=== PATIENT | male | born 1965 | race Hispanic/Latino ===

== ENCOUNTER 2018-06-05 02:43 | Emergency (ER) | payer OTHER ==
[~2018-06-05] VITALS: Ht 172.7 cm; Wt 117.9 kg
[~2018-06-05 02:43] MED LIST: AMIODARONE HCL200 MG; AMIODARONE HCL200 MG PO; CARVEDILOL3.125 MG; CARVEDILOL3.125 MG PO; COUMADIN5 MG PO; CYCLOBENZAPRINE5 MG PO; FUROSEMIDE20 MG; FUROSEMIDE20 MG PO; LAMICTAL200 MG PO; LAMOTRIGINE200 MG; NORCO 5-325 TA1 EACH PO; PANTOPRAZOLE SO40 MG PO; PRAVASTATIN SOD40 MG; PRAVASTATIN SOD40 MG PO; SEROQUEL XR150 MG; SEROQUEL XR150 MG PO; SPIRONOLACTONE25 MG; SPIRONOLACTONE25 MG PO; SUCRALFATE1 GM PO; TRAZODONE HCL50 MG; WARFARIN SODIU2.5 MG
[2018-06-05] MEDS ORDERED: FUROSEMIDE40 MG PO (03:14)
[2018-06-05] MEDS ORDERED: WARFARIN SODIUM5 MG PO (03:14)
[2018-06-05] MEDS ORDERED: CARVEDILOL25 MG PO (03:14)
[2018-06-05] MEDS ORDERED: ATORVASTATIN CA40 MG PO (03:14)
[2018-06-05] MEDS ORDERED: CITALOPRAM HBR20 MG PO (03:14)
[2018-06-05] MEDS ORDERED: ROPINIROLE HCL1 MG PO (03:14)
[2018-06-05] MEDS ORDERED: VENTOLIN HFA18 GM INH (03:14)
[2018-06-05] MEDS ORDERED: BUPROPION XL300 MG PO (03:14)
[2018-06-05 03:18] LABS: BASOPHILS % 0.4 % (0.0-1.0); EOSINOPHILS # (AUTO) 0.1 (0.0-0.4); EOSINOPHILS % 1.3 % (0.0-6.0); HEMATOCRIT 46.6 % (38.2-49.6); LYMPHOCYTES # (AUTO) 1.8 (1.0-3.2); LYMPHOCYTES % 17.9 % (18.0-39.1); MEAN CORPUSCULAR HEMOGLOBIN 28.1 pg (28-32); MEAN CORPUSCULAR HGB CONC 34.3 g/dL (31-35); MEAN CORPUSCULAR VOLUME 81.9 fL (81-99); MONOCYTES # (AUTO) 1.3 (0.2-0.8); MONOCYTES % 12.9 % (4.4-11.3); NEUTROPHILS # (AUTO) 6.6 (2.1-6.9); PLATELET COUNT 313 x10e3/uL (140-360); RED BLOOD COUNT 5.69 x10e6/uL (4.3-5.7); RED CELL DISTRIBUTION WIDTH 15.3 % (11.7-14.4)
[2018-06-05 03:30] LABS: ALANINE AMINOTRANSFERASE 62 IU/L (0-55); ALBUMIN 3.3 g/dL (3.5-5.0); ALBUMIN/GLOBULIN RATIO 0.9 (0.8-2.0); ALKALINE PHOSPHATASE 94 IU/L (40-150); ANION GAP 13.3 mmol/L (8-16); BLOOD UREA NITROGEN 10 mg/dL (7-26); BUN/CREATININE RATIO 10 (6-25); CALCIUM 8.8 mg/dL (8.4-10.2); CARBON DIOXIDE 25 mmol/L (22-29); CHLORIDE 103 mmol/L (98-107); CREATINE KINASE 184 IU/L (30-200); CREATININE, SERUM 1.02 mg/dL (0.72-1.25); EST GLOMERULAR FILTRATION RATE > 60 ML/MIN (60-); GLUCOSE 106 mg/dL (74-118); MAGNESIUM 1.5 MG/DL (1.3-2.1); POTASSIUM 3.3 mmol/L (3.5-5.1); SODIUM 138 mmol/L (136-145)
--- NOTE | 2018-06-05 03:44 | Diagnostic Imaging Report ---
EXAM: CHEST SINGLE (PORTABLE), AP 1 view INDICATION: Defibrillator alarm COMPARISON: None FINDINGS: LINES/TUBES: Left approach dual lead pacemaker with leads in expected location of the right atrial appendage and right ventricle. LUNGS: No consolidations or edema. PLEURA: No effusions or pneumothorax. HEART AND MEDIASTINUM: Normal size and contour. BONES AND SOFT TISSUES: No acute findings. IMPRESSION: No acute thoracic abnormality. Signed by: Dr. Nelda Lackey M.D. on 06/05/2018 3:41 AM
[2018-06-05] MEDS ORDERED: POTASSIUM CHLORIDE 20 MEQ TAB CR PO STA (04:37)
== END 2018-06-05 05:25 | disposition other institution (70) ==
LOC: ER 02:43
DX: I49.01 Ventricular fibrillation (principal); Z95.810 Presence of automatic (implantable) cardiac defibrillator
CPT/HCPCS: 36415; 71045; 80053; 82550; 82553; 83735; 84484; 85025; 93005; 99284

== ENCOUNTER 2018-09-05 16:28 | Observation (INO) | payer OTHER ==
[~2018-09-05] VITALS: Ht 172.7 cm; Wt 111.1 kg
[~2018-09-05 16:28] MED LIST changes: +ATORVASTATIN CA40 MG PO; +BUPROPION XL300 MG PO; +CARVEDILOL25 MG PO; +CITALOPRAM HBR20 MG PO; +FUROSEMIDE40 MG PO; +ROPINIROLE HCL1 MG PO; +VENTOLIN HFA18 GM INH; +WARFARIN SODIUM5 MG PO
--- OUTSIDE RECORDS SUMMARY | 2018-09-05 16:30 | XMS REPORT | Continuity of Care Document ---
Author Author [facility] Interface Address Unknown Phone Unavailable Problems Problem Status Onset Date Classification Date Reported Comments Source R05 - COUGH Active 03/03/2016 [facility] Medications Medication Details Route Status Patient Instructions Ordering Provider Order Date Source Allergies, Adverse Reactions, Alerts Substance Category Reaction Severity Reaction type Status Date Reported Comments Source Immunizations Immunization Date Given Site Status Last Updated Comments Source Results Order Name Results Value Reference Range Date Interpretation Comments Source Chest 2 views DX Chest 2 views DX EXAM: XR CHEST 2 VIEWS DATE: 03/04/2016 9:55 AM CDT INDICATION: R05 Cough for the past one month COMPARISON: None TECHNIQUE: PA and lateral chest radiographs FINDINGS: A dual-lead left chest wall subclavian cardiac device is in place with lead tips projected over the right atrium and right ventricle. No lung parenchymal or pleural abnormalities are seen Gisselle and pulmonary vasculature are normal. Cardiomediastinal silhouette is normal in appearance. No acute bony abnormality is identified. IMPRESSION: No acute cardiopulmonary abnormality. 03/04/2016 - - Read by: Bal Mackey MD Dictated Date/time: 03/04/16 10:22 Electronically Signed by: Bal Mackey MD 03/04/16 10:23 FINAL REPORT [facility] Vital Signs Vital Sign Value Date Comments Source Encounters Location Location Details Encounter Type Encounter Number Reason For Visit Attending Provider ADM Date DC Date Status Source Procedures Procedure Code Date Perfomer Comments Source
--- OUTSIDE RECORDS SUMMARY | 2018-09-05 16:30 | XMS REPORT | Summary of Care ---
Author Author Bianka DE LUNA Ela Charly Unknown Address Unknown Phone Unavailable Care Team Providers Care Stone Circular Sawyer Name Role Phone CARLOS Avila, ERNST Unavailable Unavailable ABHI Avila, SHERIDAN Unavailable Unavailable MIGDALIA Avila, SHAOJIJe Unavailable Unavailable OBONYABHIJIT N.P., TRACEY Unavailable Unavailable ABHI CARLISLE [place], SHERIDAN Unavailable Unavailable TRINH Avila, CASSIE Unavailable Unavailable JANAK Avila, ZULMA Unavailable Unavailable Loren CARLISLE, Will Unavailable Unavailable PRINCESS CARLISLE [place], JODIE Sales Unavailable Unavailable Jodie CARLISLE, Adrian Unavailable Unavailable Unavailable Unavailable Functional Status Name Dates Details Functional status health issues are not documented Status: Name Dates Details Cognitive status health issues are not documented Status: Problems Name Dates Details Exposure to blood (V15.85, Z77.21) Status: Active Neuropathy (355.9, G62.9) Status: Active Low back pain (724.2, M54.5) Status: Active Allergic rhinitis (477.9, J30.9) Status: Active Flu vaccine need (V04.81, Z23) Status: Active Chest pain (786.50, R07.9) Status: Active Hearing loss (389.9, H91.90) Status: Active Asymmetrical sensorineural hearing loss (389.16, H90.5) Status: Active Leg pain, bilateral (729.5, M79.604) Status: Active Eustachian tube dysfunction (381.81, H69.80) Status: Active Cerebral infarction, unspecified (434.91, I63.9) Status: Active Annual physical exam (V70.0, Z00.00) Status: Active Erectile dysfunction, unspecified erectile dysfunction type (607.84, N52.9) Status: Active Right shoulder pain (719.41, M25.511) Status: Active Alkaline phosphatase elevation (790.5, R74.8) Status: Active 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 with INR goal of 2.0-3.0 (V58.61, Z79.01) Status: Active Muscle spasm (728.85, M62.838) Status: Active Need for pneumococcal vaccine (V03.82, Z23) Status: Active Bilateral anterior knee pain (719.46, M25.561) Status: Active Polycythemia (238.4, D75.1) Status: Active Right non-suppurative otitis media (381.4, H65.91) Status: Active Sinus congestion (478.19, R09.81) Status: Active Otorrhea of right ear (388.60, H92.11) Status: Active Diverticulosis of large intestine without hemorrhage (562.10, K57.30) Status: Active Renal cyst, left (753.10, N28.1) Status: Active Hypophosphatemia (275.3, E83.39) Status: Active Advance directive discussed with patient (V65.49, Z71.89) Status: Active Encounter for smoking cessation counseling (V65.42, Z71.6) Status: Active Incisional hernia (553.21, K43.2) Status: Active Obstructive sleep apnea (327.23, G47.33) Status: Active Ventral hernia (553.20, K43.9) Status: Active Restless legs syndrome (333.94, G25.81) Status: Active Depression screen (V79.0, Z13.89) Status: Active Encounter for mini-mental status examination Status: Active Risk for falls (V15.88, Z91.81) Status: Active Fall from chair, initial encounter (E884.2, W07.XXXA) Status: Active Need for shingles vaccine (V04.89, Z23) Status: Active Noncompliance with treatment (V15.81, Z91.19) Status: Active Abnormal CBC (790.6, R79.89) Status: Active SOB (shortness of breath) (786.05, R06.02) Status: Active Depressive disorder (311, F32.9) Status: Active Essential (primary) hypertension (401.9, I10) Status: Active Hyperlipidemia (272.4, E78.5) Status: Active Bloating (787.3, R14.0) Status: Active Diarrhea (787.91, R19.7) Status: Active Colon cancer screening (V76.51, Z12.11) Status: Active Excessive gas (787.3, R14.3) Status: Active Hospital discharge follow-up (V67.59, Z09) Status: Active Dizziness (780.4, R42) Status: Active Cardiomyopathy, idiopathic (425.4, I42.8) Status: Active Ventricular tachycardia (427.1, I47.2) Status: Active Tubular adenoma (229.9, D36.9) Status: Active Abnormal LFTs (790.6, R94.5) Status: Active Current every day smoker (305.1, F17.200) Status: Active Numbness and tingling of left upper extremity (782.0, R20.0) Status: Active Abnormal CT scan, cervical spine (793.7, R93.7) Status: Active Atrial fibrillation (427.31, I48.91) Status: Active Anticoagulant long-term use (V58.61, Z79.01) Status: Active Acid reflux (530.81, K21.9) Status: Active Chronic diarrhea (787.91, K52.9) Status: Active DJD (degenerative joint disease) of cervical spine (721.0, M47.812) Status: Active Major depression, recurrent, chronic (296.30, F33.9) Status: Active CAD (coronary artery disease) (414.00, I25.10) Status: Active Controlled type 2 diabetes mellitus without complication, without long-term current use of insulin (250.00, E11.9) Status: Active Fatty liver (571.8, K76.0) Status: Active GERD without esophagitis (530.81, K21.9) Status: Active Obesity (BMI 30-39.9) (278.00, E66.9) Status: Active Pancreatic insufficiency (577.8, K86.89) Status: Active Chest pressure (786.59, R07.89) Status: Active Uncontrolled hypertension (401.9, I10) Status: Active Headache (784.0, R51) Status: Active Obesity, morbid, BMI 40.0-49.9 (278.01, E66.01) Status: Active Need for influenza vaccination (V04.81, Z23) Status: Active Medications Name Dates Details Carvedilol 25 MG Oral Tablet Take 1 tablet by mouth twice a day * Start : 07-Feb-2013 Active Vitamin K2 100 MCG Oral Capsule TAKE 1 CAPSULE DAILY * Refills: 0 Active Warfarin Sodium 5 MG Oral Tablet TAKE 1 TABLET BY MOUTH EVERY DAY DIRECTED * Quantity: 90 Refills: 0 ABHI Avila, SHERIDAN * Start : 23-Aug-2018 Active Atorvastatin Calcium 40 MG Oral Tablet TAKE 1 TABLET BY MOUTH EVERY DAY * Quantity: 90 Refills: 0 ABHI Avila SHERIDAN * Start : 21-Jun-2018 Active Diclofenac Sodium 1 % Transdermal Gel APPLY 4GM(S) TO LOWER EXTREMITIES OF THE AFFECTED AREA(S) FOUR TIMES A DAY. DO N OT APPLY MORE THAN 16 GM(S) DAILY TO ANY ONE AFFECTED JOINT * Quantity: 10 Refills: 3 ERNST GONZALEZ M.D. * Start : 20-May-2017 Active 100 GM Tube BuPROPion HCl ER (XL) 300 MG Oral Tablet Extended Release 24 Hour TAKE 1 TABLET BY MOUTH DAILY DIRECTED * Quantity: 90 Refills: 0 ABHI Avila, SHERIDAN * Start : 21-Jun-2018 Active Aspirin 81 MG Oral Tablet Chewable CHEW AND SWALLOW 1 TABLET DAILY. * Refills: 0 Active Requip 1 MG Oral Tablet TAKE 1 TABLETS AT BEDTIME-Dr Garcia * Refills: 0 ABHI Avila, SHERIDAN * Start : 06-Aug-2017 Active Excedrin Extra Strength TABS TAKE TABLET PRN * Refills: 0 Active Shingrix 50 MCG Intramuscular Suspension Reconstituted IM: 0.5 mL 2-dose series at 0 and 2 to 6 months * Quantity: 1 Refills: 1 ABHI Avila SHERIDAN * Start : 25-Mar-2018 Active ProAir HFA 108 (90 Base) MCG/ACT Inhalation Aerosol Solution INHALE 1 TO 2 PUFFS EVERY 4 TO 6 HOURS NEEDED. * Quantity: 1 Refills: 1 ABHI Avila SHERIDAN * Start : 12-May-2018 Active 8.5 GM Inhaler Loperamide HCl - 2 MG Oral Capsule TAKE 1 CAPSULE Twice daily PRN for loose stools * Quantity: 60 Refills: 0 OBONYANO N.P., TRACEY Active Lisinopril 2.5 MG Oral Tablet TAKE 1 TABLET DAILY.-HOLD, low bp * Quantity: 90 Refills: 1 SATTAR M.D., SHERIDAN * Start : 17-Jun-2018 Active Pantoprazole Sodium 40 MG Oral Tablet Delayed Release TAKE ONE (1) TABLET(S) BY MOUTH ONCE A DAY IN THE MORNING. * Quantity: 30 Refills: 6 OBONYANO N.P., TRACEY * Start : 28-Jun-2018 Active Creon [id number] UNIT Oral Capsule Delayed Release Particles TAKE 1 CAPSULE 3 TIMES DAILY with meals * Quantity: 90 Refills: 6 OBONYANO N.P., TRACEY * Start : 28-Jun-2018 Active OneTouch Verio In Vitro Strip test once daily * Quantity: 150 Refills: 2 SATTAR M.D., SHERIDAN * Start : 01-Jul-2018 Active OneTouch Verio Flex System w/Device Kit USE DIRECTED. * Quantity: 1 Refills: 0 SATTAR M.D., SHERIDAN * Start : 30-Jun-2018 Active OneTouch Delica Lancets 33G USE TO TEST BLOOD GLUCOSE ONCE DAILY * Quantity: 50 Refills: 1 SATTAR M.D., SHERIDAN * Start : 30-Jun-2018 Active MetFORMIN HCl - 500 MG Oral Tablet TAKE 1 TABLET TWICE DAILY. * Quantity: 60 Refills: 2 SATTAR M.D., SHERIDAN * Start : 22-Jul-2018 Active Sertraline HCl - 25 MG Oral Tablet TAKE 1 TABLET DAILY. * Quantity: 30 Refills: 1 NEGRON M.D., SHAOJIE * Start : 26-Jul-2018 Active Allergies and Adverse Reactions Name Dates Details PARoxetine HCl ER TB24 (Allergy) Reaction: Confusion, Dizziness, Nausea, Sexual dysfunction Status: Active Past Medical History Name Dates Details History of Acute Myocardial Infarction (V12.59) Status: Resolved History of Acute suppurative otitis media (382.00, H66.009) Status: Resolved History of Atrial fibrillation (427.31, I48.91) Status: Resolved History of Breast pain, right (611.71, N64.4) Status: Resolved History of Drug-induced gynecomastia (611.1, N62) Status: Resolved History of Encounter for smoking cessation counseling (V65.42, Z71.6) Status: Resolved History of gynecomastia (V13.89, Z87.898) Status: Resolved History of Otitis externa (380.10, H60.90) Status: Resolved History of Otitis externa (380.10, H60.90) Status: Resolved History of Pseudomonas infection (041.7, B96.5) Status: Resolved History of Rhinitis (472.0, J31.0) Status: Resolved History of Stye (373.11, H00.019) Status: Resolved History of Swelling in head/neck (784.2, R22.0) Status: Resolved History of Upper respiratory infection, acute (465.9, J06.9) Status: Resolved Procedures Procedure Dates Details EKG (In Office) Date: 12-Aug-2018 [[facility]] CMP W/EGFR Date: 12-Aug-2018 [[facility]] MAGNESIUM Date: 12-Aug-2018 [[facility]] PHOSPHATE ( PHOSPHORUS) Date: 12-Aug-2018 CT Spine cervical wo contrast (ER) 61382 Date: 08-Jul-2018 History of Abdominal Surgery Completed History of Knee Surgery Left Completed History of Knee Surgery Completed History of Jaw Surgery Completed History of Hernia Repair Completed History of Gastric Surgery Completed History of Pacemaker Placement Completed Immunization Name Dates Details Fluzone Preservative Free 0.5 ML CARLOS A Lot #: [id number] on: 07-Aug-2015 Fluzone INJ Lot #: [id number] on: 16-Jul-2016 Tdap Lot #: [id number] on: 06-Oct-2016 Pneumococcal polysaccharide vaccine, 23 valent Lot #: [id number] on: 04-Feb-2017 Fluzone Quadrivalent 0.5 ML Intramuscular Suspension Prefilled Syringe Lot #: [id number] on: 12-Aug-2018 Family History Name Dates Details Family history of Cancer Status: Active Name Dates Details Family history of Hypertension (V17.49) Status: Active Social History Name Dates Details - Status: Name Dates Details Former smoker Current every day smoker Vital Signs Date Test Result Details [id number] BP Systolic 119 mm[Hg] Status: Comments: Location: LUE; Position: Sitting BP Diastolic 61 mm[Hg] Status: Comments: Location: LUE; Position: Sitting Height 68 in Status: Weight 245.8 lb Status: Body Mass Index Calculated 37.37 kg/m2 Status: Body Surface Area Calculated 2.23 m2 Status: Respiration Rate 16 /min Status: Temperature 97.9 f Status: Comments: Method: Temporal Physical Findings 1 Status: Comments: Alcohol Screen - How many times in the past yr have you had 5 (for M) or 4 (for F) or 4 (for all > 65yrs) or more drinks in a day? Heart Rate 61 /min Status: 3-Xjw-287794:37 Physical Findings 13 Status: Comments: PHQ-9 Adult Depression Screening 33-Nlf-937302:01 Height 68 in Status: Weight 252.3 lb Status: Body Mass Index Calculated 38.36 kg/m2 Status: Body Surface Area Calculated 2.26 m2 Status: 11-Kvn-691015:48 BP Systolic 107 mm[Hg] Status: Comments: Location: LUE; Position: Sitting BP Diastolic 67 mm[Hg] Status: Comments: Location: LUE; Position: Sitting Height 68 in Status: Weight 251.5625 lb Status: Body Mass Index Calculated 38.25 kg/m2 Status: Body Surface Area Calculated 2.25 m2 Status: Respiration Rate 16 /min Status: Temperature 98.2 f Status: Comments: Method: Temporal Heart Rate 80 /min Status: Comments: Location: L Brachial Artery; Results Date Description Value Details 11-Xsi-976491:33 [O] PT/INR (in office) PT 24.1 (Normal) INR 2.0 (Normal) :47 [O] PT/INR (in office) International Normalization Ratio 2.0 PT 24.5 . 28Q Plan of Care Name Dates Details Planned Observations Planned Goals not documented Planned Encounters Appointment; JAMI GARCIA RD On: 06-Sep-2018 10:00 Appointment; CRISTELA LANIER NP On: 07-Sep-2018 10:00 Appointment; SHERIDAN MOE M.D. On: 16-Sep-2018 15:00 Appointment; SHERIDAN MOE M.D. On: 26-Sep-2018 8:00 Appointment; SHANTI KUO On: 11-Oct-2018 9:30 Appointment; WILL ROMAN M.D. On: 16-Dec-2018 11:40 Interventions Provided Medication Changes* Warfarin Sodium 5 MG Oral Tablet - Renew Instructions Name Dates Details Instructions not documented Encounters Appointment; SHERIDAN MOE M.D. Encounter Diagnosis: Problem not documented On: 21-Sep-2016 11:30 Appointment; SHERIDAN MOE M.D. Encounter Diagnosis: Problem not documented On: 22-Oct-2016 12:00 Appointment; SHANTI KUO Encounter Diagnosis: Problem not documented On: 17-Nov-2016 10:30 Appointment; SHERIDAN MOE M.D. Encounter Diagnosis: Problem not documented On: 17-Nov-2016 11:30 Appointment; SHERIDAN MOE M.D. Encounter Diagnosis: Problem not documented On: 23-Nov-2016 12:00 Appointment; HUGO WEINBERG D.O. Encounter Diagnosis: Problem not documented On: 25-Nov-2016 13:30 Appointment; SHERIDAN MOE M.D. Encounter Diagnosis: Problem not documented On: 07-Jan-2017 11:00 Appointment; SHERIDAN MOE M.D. Encounter Diagnosis: Problem not documented On: 04-Feb-2017 11:00 Appointment; SHERIDAN MOE M.D. Encounter Diagnosis: Problem not documented On: 11-Feb-2017 8:00 Appointment; ADRIAN KATZ M.D. Encounter Diagnosis: Problem not documented On: 17-Feb-2017 10:30 Appointment; SHERIDAN MOE M.D. Encounter Diagnosis: Problem not documented On: 17-Feb-2017 11:30 Appointment; SHANTI KUO Encounter Diagnosis: Problem not documented On: 23-Feb-2017 10:00 Appointment; SHERIDAN MOE M.D. Encounter Diagnosis: Problem not documented On: 09-Mar-2017 9:00 Appointment; WILL ROMAN M.D. Encounter Diagnosis: Problem not documented On: 09-Mar-2017 9:20 Appointment; SHERIDAN MOE M.D. Encounter Diagnosis: Problem not documented On: 09-Apr-2017 13:00 Appointment; SHERIDAN MOE M.D. Encounter Diagnosis: Problem not documented On: 23-Apr-2017 10:00 Appointment; SHERIDAN MOE M.D. Encounter Diagnosis: Problem not documented On: 13-May-2017 8:30 Appointment; JODIE SÁNCHEZ M.D. Encounter Diagnosis: Problem not documented On: 13-May-2017 14:00 Appointment; ERNST GONZALEZ M.D. Encounter Diagnosis: Problem not documented On: 20-May-2017 13:45 Appointment; SHERIDAN MOE M.D. Encounter Diagnosis: Problem not documented On: 25-May-2017 9:00 Appointment; SHANTI KUO Encounter Diagnosis: Problem not documented On: 25-May-2017 10:15 Appointment; KOFFI GALVEZ LCSW Encounter Diagnosis: Problem not documented On: 28-May-2017 10:00 Appointment; SHERIDAN MOE M.D. Encounter Diagnosis: Problem not documented On: 01-Jun-2017 14:30 Appointment; WILL ROMAN M.D. Encounter Diagnosis: Problem not documented On: 16-Jun-2017 15:20 Appointment; SHERIDAN MOE M.D. Encounter Diagnosis: Problem not documented On: 24-Jun-2017 10:30 Appointment; JODIE SÁNCHEZ M.D. Encounter Diagnosis: Problem not documented On: 24-Jun-2017 13:45 Appointment; WILL ROMAN M.D. Encounter Diagnosis: Problem not documented On: 25-Jun-2017 9:40 Appointment; SHERIDAN MOE M.D. Encounter Diagnosis: Problem not documented On: 28-Jun-2017 10:30 Appointment; SHERIDAN MOE M.D. Encounter Diagnosis: Problem not documented On: 26-Jul-2017 10:30 Appointment; SHERIDAN MOE M.D. Encounter Diagnosis: Problem not documented On: 02-Aug-2017 14:30 Appointment; SHANTI KUO Encounter Diagnosis: Problem not documented On: 24-Aug-2017 10:15 Appointment; SHERIDAN MOE M.D. Encounter Diagnosis: Problem not documented On: 31-Aug-2017 11:00 Appointment; SHERIDAN MOE M.D. Encounter Diagnosis: Problem not documented On: 28-Sep-2017 10:30 Appointment; SHERIDAN MOE M.D. Encounter Diagnosis: Problem not documented On: 04-Oct-2017 11:00 Appointment; SHERIDAN MOE M.D. Encounter Diagnosis: Problem not documented On: 04-Oct-2017 13:00 Appointment; SHERIDAN MOE M.D. Encounter Diagnosis: Problem not documented On: 11-Oct-2017 10:00 Appointment; SHERIDAN MOE M.D. Encounter Diagnosis: Problem not documented On: 25-Oct-2017 9:15 Appointment; SHERIDAN MOE M.D. Encounter Diagnosis: Problem not documented On: 03-Nov-2017 8:00 Appointment; SHERIDAN MOE M.D. Encounter Diagnosis: Problem not documented On: 18-Nov-2017 9:15 Appointment; SHANTI KUO Encounter Diagnosis: Problem not documented On: 14-Dec-2017 9:45 Appointment; SHERIDAN MOE M.D. Encounter Diagnosis: Problem not documented On: 20-Dec-2017 9:15 Appointment; SHERIDAN MOE M.D. Encounter Diagnosis: Problem not documented On: 28-Dec-2017 8:30 Appointment; [facility] Encounter Diagnosis: Problem not documented On: 11-Jan-2018 8:00 Appointment; WILL ROMAN M.D. Encounter Diagnosis: Problem not documented On: 11-Jan-2018 10:00 Appointment; SHERIDAN MOE M.D. Encounter Diagnosis: Problem not documented On: 26-Jan-2018 11:30 Appointment; SHERIDAN MOE M.D. Encounter Diagnosis: Problem not documented On: 02-Feb-2018 13:00 Appointment; SHERIDAN MOE M.D. Encounter Diagnosis: Problem not documented On: 16-Feb-2018 9:00 Appointment; SHERIDAN MOE M.D. Encounter Diagnosis: Problem not documented On: 02-Mar-2018 8:00 Appointment; SHERIDAN MOE M.D. Encounter Diagnosis: Problem not documented On: 18-Mar-2018 10:30 Appointment; SHERIDAN MOE M.D. Encounter Diagnosis: Problem not documented On: 25-Mar-2018 9:15 Appointment; SHERIDAN MOE M.D. Encounter Diagnosis: Problem not documented On: 15-Apr-2018 9:15 Appointment; SHERIDAN MOE M.D. Encounter Diagnosis: Problem not documented On: 12-May-2018 13:00 Appointment; SHERIDAN MOE M.D. Encounter Diagnosis: Problem not documented On: 23-May-2018 13:15 Appointment; FIDENCIO NEGRON M.D. Encounter Diagnosis: Problem not documented On: 31-May-2018 10:00 Appointment; HUGO WEINBERG D.O. Encounter Diagnosis: Problem not documented On: 31-May-2018 11:00 Appointment; HUGO WEINBERG D.O. Encounter Diagnosis: Problem not documented On: 13-Jun-2018 10:45 Appointment; WILL ROMAN M.D. Encounter Diagnosis: Problem not documented On: 17-Jun-2018 11:00 Appointment; ADRIAN KATZ M.D. Encounter Diagnosis: Problem not documented On: 17-Jun-2018 13:15 Appointment; SHERIDAN MOE M.D. Encounter Diagnosis: Problem not documented On: 30-Jun-2018 13:00 Appointment; SHERIDAN MOE M.D. Encounter Diagnosis: Problem not documented On: 08-Jul-2018 11:00 Appointment; SHANTI KUO Encounter Diagnosis: Problem not documented On: 12-Jul-2018 9:00 Appointment; WILL ROMAN M.D. Encounter Diagnosis: Problem not documented On: 12-Jul-2018 9:20 Appointment; SHERIDAN MOE M.D. Encounter Diagnosis: Problem not documented On: 22-Jul-2018 9:00 Appointment; FIDENCIO NEGRON M.D. Encounter Diagnosis: Problem not documented On: 26-Jul-2018 10:30 Appointment; JAMI GARCIA RD Encounter Diagnosis: Problem not documented On: 26-Jul-2018 13:00 Appointment; SHERIDAN MOE M.D. Encounter Diagnosis: Problem not documented On: 29-Jul-2018 8:15 Appointment; SHERIDAN MOE M.D. Encounter Diagnosis: Problem not documented On: 05-Aug-2018 13:30 Appointment; JOHN ANTOINE NP Encounter Diagnosis: Problem not documented On: 12-Aug-2018 15:30 Appointment; SHERIDAN MOE M.D. Encounter Diagnosis: Problem not documented On: 15-Aug-2018 8:30 Appointment; SHERIDAN MOE M.D. Encounter Diagnosis: Problem not documented On: 19-Aug-2018 8:00
--- OUTSIDE RECORDS SUMMARY | 2018-09-05 16:30 | XMS REPORT ---
Author Author [facility] Organization [facility] Address Unknown Phone Unavailable Care Team Providers Care Sales Systems Engineer Name Role Phone Rudy LEMUS Unavailable Unavailable Payers Payer Name Policy Type Policy Number Effective Date Expiration Date Problems This patient has no known problems. Allergies, Adverse Reactions, Alerts Allergy Name Allergy Type Status Severity Reaction(s) Onset Date Inactive Date Treating Clinician Comments No Known Allergies DA Active U 2018-07-27 00:00:00 No Known Allergies DA Active U 2011-02-03 00:00:00 Medications This patient has no known medications. Results Test Description Test Time Test Comments Text Results Atomic Results Result Comments CHEST SINGLE (PORTABLE) 2018-06-05 03:40:00 [facility] [address] [address] Patient Name: ROBERTO JAMES MR #: [id number] : 1965 Age/Sex: 53/M Req #: [id number] Adm Physician: Ordered by: JODIE LEMUS MD Report #: [id number] Location: ER Room/Bed: Procedure: [id number] DX/CHEST SINGLE (PORTABLE) Exam Date: 06/05/18 Exam Time: 0320 REPORT STATUS: Signed EXAM: CHEST SINGLE (PORTABLE), AP 1 view INDICATION: Defibrillator alarm COMPARISON: None FINDINGS: LINES/TUBES: Left approach dual lead pacemaker with leads in expected location of the right atrial appendage and right ventricle. LUNGS: No consolidations or edema. PLEURA: No effusions or pneumothorax. HEART AND MEDIASTINUM: Normal size and contour. BONES AND SOFT TISSUES: No acute findings. IMPRESSION: No acute thoracic abnormality. Signed by: Dr. Junior Lackey M.D. on 06/05/2018 3:41 AM Dictated By: JUNIOR LACKEY MD 0 Transcribed By: PRANAY on 06/05/18340 COPY TO: JODIE LEMUS MD
[2018-09-05] MEDS ORDERED: ASPIRIN 81 MG CHEW TAB PO ONE (16:45)
[2018-09-05 17:27] LABS: BASOPHILS % 0.4 % (0.0-1.0); EOSINOPHILS # (AUTO) 0.2 (0.0-0.4); EOSINOPHILS % 1.7 % (0.0-6.0); HEMATOCRIT 51.6 % (38.2-49.6); LYMPHOCYTES # (AUTO) 2.2 (1.0-3.2); LYMPHOCYTES % 23.8 % (18.0-39.1); MEAN CORPUSCULAR HEMOGLOBIN 27.7 pg (28-32); MEAN CORPUSCULAR HGB CONC 32.9 g/dL (31-35); MONOCYTES # (AUTO) 0.9 (0.2-0.8); MONOCYTES % 9.9 % (4.4-11.3); NEUTROPHILS # (AUTO) 5.8 (2.1-6.9); NEUTROPHILS % 63.9 % (38.7-80.0); PLATELET COUNT 301 x10e3/uL (140-360); RED BLOOD COUNT 6.14 x10e6/uL (4.3-5.7); RED CELL DISTRIBUTION WIDTH 16.6 % (11.7-14.4)
[2018-09-05 17:39] LABS: INR 2.36; PROTHROMBIN TIME 27.6 seconds (11.9-14.5)
[2018-09-05 17:40] LABS: PARTIAL THROMBOPLASTIN TIME 48.5 seconds (23.8-35.5)
[2018-09-05 17:45] LABS: BILIRUBIN,URINE NEGATIVE (NEGATIVE); CLARITY,URINE SL CLOUDY (CLEAR); COLOR,URINE YELLOW (YELLOW); KETONES,URINE NEGATIVE (NEGATIVE); LEUKOCYTE ESTERASE ,URINE TRACE (NEGATIVE); NITRITE,URINE NEGATIVE (NEGATIVE); PROTEIN,URINE DIPSTICK NEGATIVE (NEGATIVE); URINE UROBILINOGEN 1 mg/dL (0.2 - 1)
[2018-09-05 17:46] LABS: BACTERIA,URINE FEW /HPF; WBC,URINE (MAN) 0-5 /HPF (0-5)
[2018-09-05 17:49] LABS: ALANINE AMINOTRANSFERASE 27 IU/L (0-55); ALBUMIN 3.7 g/dL (3.5-5.0); ALBUMIN/GLOBULIN RATIO 1.1 (0.8-2.0); ALKALINE PHOSPHATASE 107 IU/L (40-150); BLOOD UREA NITROGEN 13 mg/dL (7-26); BUN/CREATININE RATIO 14 (6-25); CALCIUM 9.4 mg/dL (8.4-10.2); CARBON DIOXIDE 23 mmol/L (22-29); CHLORIDE 103 mmol/L (98-107); CREATINE KINASE 105 IU/L (30-200); CREATININE, SERUM 0.96 mg/dL (0.72-1.25); EST GLOMERULAR FILTRATION RATE > 60 ML/MIN (60-); GLUCOSE 118 mg/dL (74-118); LIPASE 32 U/L (8-78); MAGNESIUM 2.2 MG/DL (1.3-2.1); SODIUM 137 mmol/L (136-145)
[2018-09-05] MEDS ORDERED: LOPERAMIDE2 MG PO (17:59)
[2018-09-05] MEDS ORDERED: PANTOPRAZOLE SO40 MG PO (17:59)
[2018-09-05] MEDS ORDERED: ASPIRIN325 MG PO (17:59)
[2018-09-05] MEDS ORDERED: CREON DR 24,001 EACH PO (17:59)
[2018-09-05] MEDS ORDERED: VITAMIN K100 MCG PO (17:59)
--- NOTE | 2018-09-05 18:19 | Diagnostic Imaging Report ---
Examination: Single AP view of the chest. COMPARISON: Chest portable 06/05/2018 INDICATION: Substernal chest pain, shortness of breath, palpitations, dizziness, history of atrial fibrillation IMPRESSION: 1. Lines and Tubes: Stable left upper chest dual lead cardiac device, with distal tips projecting in the right atrium and right ventricle. 2. Lungs are grossly clear. No consolidation or effusion. 3. Cardiomediastinal silhouette is normal. Pulmonary vasculature is normal. 4. No acute bony abnormalities. Signed by: Dr. Juan C Mobley M.D. on 09/05/2018 6:16 PM
[2018-09-05] MEDS ORDERED: NITROGLYCERIN 0.4 MG SUBL SL PRN (19:45)
[2018-09-05] MEDS ORDERED: ONDANSETRON HCL INJ 2 MG/ML VIAL IV PRN (19:45)
[2018-09-05] MEDS ORDERED: DEXTROSE 50% SYRINGE 50 ML IV PRN (19:45)
[2018-09-05] MEDS ORDERED: MORPHINE SULFATE 2 MG/ML SYR IV PRN (19:45)
--- OUTSIDE RECORDS SUMMARY | 2018-09-05 19:45 | XMS REPORT | Summary of Care ---
Author Author Antoinette Welsh, Ananya Organization Unknown Address [facility] Phone Unavailable Care Team Providers Care Pharmacist Aide Name Role Phone CARLOS Avila, ERNST Unavailable Unavailable Antoinette Welsh, Ananya Unavailable Unavailable ABHI Avila, SHERIDAN Unavailable Unavailable MIGDALIA Avila, SHAOJIE Unavailable Unavailable SABRINA N.P., TRACEY Unavailable Unavailable ABHI CARLISLE [facility], SHERIDAN Unavailable Unavailable TRINH Avila, CASSIE Unavailable Unavailable JANAK Avila, ZULMA Unavailable Unavailable Loren CARLISLE, Will Unavailable Unavailable PRINCESS CARLISLE DE, JODIE Sales Unavailable Unavailable Jodie CARLISLE, Adrian [...] Alkaline phosphatase elevation (790.5, R74.8) 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 DO N OT APPLY MORE THAN 16 GM(S) DAILY TO ANY ONE AFFECTED JOINT * Quantity: 10 Refills: 3 CARLOS M.D., ERNST * Start : 20-May-2017 Active 100 GM Tube BuPROPion HCl ER (XL) 300 MG Oral Tablet Extended Release 24 Hour TAKE 1 TABLET BY MOUTH DAILY DIRECTED * Quantity: 90 Refills: 0 SATTAR M.D., SHERIDAN * Start : 21-Jun-2018 Active Aspirin 81 MG Oral Tablet Chewable CHEW AND SWALLOW 1 TABLET DAILY. * Refills: 0 Active Requip 1 MG Oral Tablet TAKE 1 TABLETS AT BEDTIME-Dr Garcia * Refills: 0 SATTAR M.D., SHERIDAN * Start : 06-Aug-2017 Active Excedrin Extra Strength TABS TAKE TABLET PRN * Refills: 0 Active Shingrix 50 MCG Intramuscular Suspension Reconstituted IM: 0.5 mL 2-dose series at 0 and 2 to 6 months * Quantity: 1 Refills: 1 SATTAR M.D., SHERIDAN * Start : 25-Mar-2018 Active ProAir HFA 108 (90 Base) MCG/ACT Inhalation Aerosol Solution INHALE 1 TO 2 PUFFS EVERY 4 TO 6 HOURS NEEDED. * Quantity: 1 Refills: 1 SATTAR M.D., SHERIDAN * Start : 12-May-2018 Active 8.5 GM Inhaler Loperamide HCl - 2 MG Oral Capsule TAKE 1 CAPSULE Twice daily PRN for loose stools * Quantity: 60 Refills: 0 OBONYANO N.P.TRACEY Active Lisinopril 2.5 MG Oral Tablet TAKE 1 TABLET DAILY.-HOLD, low bp * Quantity: 90 Refills: 1 SATTAR M.D., SHERIDAN * Start : 17-Jun-2018 Active Pantoprazole Sodium 40 MG Oral Tablet Delayed Release TAKE ONE (1) TABLET(S) BY MOUTH ONCE A DAY IN THE MORNING. * Quantity: 30 Refills: 6 OBONYANO N.P., TRACEY * Start : 28-Jun-2018 Active Creon 79671-64147 UNIT Oral Capsule Delayed Release Particles TAKE [...] * Quantity: 30 Refills: 1 NEGRON M.D., COURTNEYOCASANDRAE * Start : 26-Jul-2018 Active Allergies and [...] Dates Details EKG (In Office) Date: 12-Aug-2018 [facility] CMP W/EGFR Date: 12-Aug-2018 [QL] MAGNESIUM Date: 12-Aug-2018 [QL] PHOSPHATE ( PHOSPHORUS) Date: 12-Aug-2018 CT Spine cervical wo contrast (ER) 48002 Date: 08-Jul-2018 History of Abdominal Surgery Completed History of Knee Surgery Left Completed History of Knee Surgery Completed History of Jaw Surgery Completed History of Hernia Repair Completed History of Gastric Surgery Completed History of Pacemaker Placement Completed Immunization Name Dates Details Fluzone Preservative Free 0.5 ML CARLOS A Lot #: [id number] on: 07-Aug-2015 Fluzone INJ Lot #: [id number] on: 16-Jul-2016 Tdap Lot #: [id number] on: 06-Oct-2016 Pneumococcal polysaccharide vaccine, 23 valent Lot #: [id number] on: 04-Feb-2017 Fluzone Quadrivalent 0.5 ML Intramuscular Suspension Prefilled Syringe Lot #: [id number] on: 12-Aug-2018 Family History Name Dates Details Family history of Cancer Status: Active Name Dates Details Family history of Hypertension (V17.49) Status: Active Social History Name Dates Details - Status: Name Dates Details Former smoker Current every day smoker Vital Signs Date Test Result Details [id number] BP Systolic 119 mm[Hg] Status: Comments: Location: [...] a day? Heart Rate 61 /min Status: [id number] Physical Findings 13 Status: Comments: PHQ-9 Adult Depression Screening Results Date Description Value Details 56-Sbt-61024:47 [O] PT/INR (in office) International Normalization Ratio 2.0 PT 24.5 . 28Q Plan of Care Name Dates Details Planned Observations Planned Goals not documented Planned Encounters Appointment; JAMI GARCIA RD On: 06-Sep-2018 10:00 Appointment; CRISTELA LANIER NP On: 07-Sep-2018 10:00 Appointment; SHERIDAN MOE M.D. On: 16-Sep-2018 15:00 Appointment; SHERIDAN MOE M.D. On: 26-Sep-2018 8:00 Appointment; WILL ROMAN M.D. On: 04-Oct-2018 13:40 Appointment; SHANTI KUO On: 11-Oct-2018 9:30 Appointment; WILL ROMAN M.D. On: 16-Dec-2018 11:40 Interventions Provided Discussion/Summary* Guideline Used: * Other: non triage NTL call back * Recommended Disposition: Call back for any concerns * Action Taken: * Patient informed/educated about nurse line * Intended Caller Action: * Provider Office Visit * Additional Information: * Patient verbalized understandings of this call and agree to the recommended disposition at this time. Patient was also educated on nurse triage line use and encouraged to call back for symptom support or additional home care advice and/or go to the nearest Emergency Room or call 911 if patient condition has worsened to a medical emergency. Instructions Name Dates Details Instructions not documented [...] Problem not documented On: 18-Nov-2017 9:15 Appointment; JASONABHIGARYVADIMKAISER Encounter Diagnosis: Problem not documented On: 14-Dec-2017 9:45 Appointment; SHERIDAN MOE M.D. Encounter Diagnosis: Problem not documented On: 20-Dec-2017 9:15 Appointment; SHERIDAN MOE M.D. Encounter Diagnosis: Problem not documented On: 28-Dec-2017 8:30 Appointment; [facility] [place] Encounter Diagnosis: Problem not [...] Diagnosis: Problem not documented On: 19-Aug-2018 8:00 Appointment; JAMI GARCIA RD Encounter Diagnosis: Problem not documented On: 25-Aug-2018 10:00
[2018-09-05] MEDS: FAMOTIDINE 20 MG/2 ML VIAL IV SCH (20:26)
[2018-09-05] MEDS: INSULIN LISPRO 100 UNIT/1 ML 3ML VIAL SQ SCH (22:00)
[2018-09-06 01:34] LABS: CREATINE KINASE MB 0.9 ng/mL (0-5.0)
[2018-09-06 05:47] LABS: BASOPHILS % 0.4 % (0.0-1.0); EOSINOPHILS # (AUTO) 0.2 (0.0-0.4); EOSINOPHILS % 2.1 % (0.0-6.0); HEMATOCRIT 50.8 % (38.2-49.6); HEMOGLOBIN 16.2 g/dL (14.0-18.0); LYMPHOCYTES # (AUTO) 2.4 (1.0-3.2); LYMPHOCYTES % 25.2 % (18.0-39.1); MEAN CORPUSCULAR HEMOGLOBIN 27.5 pg (28-32); MEAN CORPUSCULAR HGB CONC 31.9 g/dL (31-35); MEAN CORPUSCULAR VOLUME 86.2 fL (81-99); MONOCYTES % 10.6 % (4.4-11.3); NEUTROPHILS # (AUTO) 5.7 (2.1-6.9); NEUTROPHILS % 60.4 % (38.7-80.0); PLATELET COUNT 276 x10e3/uL (140-360); RED BLOOD COUNT 5.89 x10e6/uL (4.3-5.7)
[2018-09-06 05:53] LABS: ANION GAP 14.9 mmol/L (8-16); BLOOD UREA NITROGEN 13 mg/dL (7-26); BUN/CREATININE RATIO 13 (6-25); CALCIUM 9.5 mg/dL (8.4-10.2); CARBON DIOXIDE 25 mmol/L (22-29); CHLORIDE 100 mmol/L (98-107); CHOL/HDL RATIO 3.7 (3.9-4.7); CHOLESTEROL 117 MD/DL (0-199); CREATININE, SERUM 0.98 mg/dL (0.72-1.25); EST GLOMERULAR FILTRATION RATE > 60 ML/MIN (60-); GLUCOSE 82 mg/dL (74-118); HDL CHOLESTEROL 32 MG/DL (40-60); LDL CHOLESTEROL 61 MG/DL (60-130); POTASSIUM 3.9 mmol/L (3.5-5.1); SODIUM 136 mmol/L (136-145); TRIGLYCERIDES 119 MG/DL (0-149)
[2018-09-06] MEDS: INSULIN LISPRO 100 UNIT/1 ML 3ML VIAL SQ SCH ×4 (07:40→20:53)
[2018-09-06] MEDS: FAMOTIDINE 20 MG/2 ML VIAL IV SCH ×2 (08:18→20:43)
[2018-09-06 09:42] LABS: CREATINE KINASE MB 0.9 ng/mL (0-5.0)
[2018-09-06] MEDS ORDERED: NON-FORMULARY MEDICATION (Loperamide Hcl (Loperamide) 2 MG) PO PRN (09:45)
[2018-09-06] MEDS ORDERED: LOPERAMIDE HCL 2 MG CAP PO PRN (09:45)
[2018-09-06] MEDS ORDERED: LIPASE PO SCH (12:00)
[2018-09-06] MEDS ORDERED: [UNRECOGNIZED DRUG - OTHER] PO SCH (12:00)
[2018-09-06] MEDS ORDERED: PROTEASE PO SCH (12:00)
[2018-09-06] MEDS ORDERED: AMYLASE PO SCH (12:00)
[2018-09-06] MEDS: AMYLAS/CELLU/LIPAS/PROTEA/BILE 12,000 UNIT CAP PO SCH ×2 (12:18→17:00)
[2018-09-06 13:49] VITALS: BP 118/87
[2018-09-06 13:59] VITALS: BP 118/87
[2018-09-06 15:47] VITALS: BP 112/67
[2018-09-06] MEDS: CARVEDILOL 12.5 MG TAB PO SCH (17:00)
[2018-09-06] MEDS ORDERED: NON-FORMULARY MEDICATION (Carvedilol 25 MG) PO SCH (17:00)
[2018-09-06] MEDS ORDERED: WARFARIN SOD 5 MG TAB PO SCH (17:00)
[2018-09-06 20:38] VITALS: BP 107/64
[2018-09-06] MEDS ORDERED: ATORVASTATIN 40 MG TAB PO SCH (21:00)
[2018-09-07] VITALS: BP 97/57
[2018-09-07 04:00] VITALS: BP 98/51
[2018-09-07] MEDS: INSULIN LISPRO 100 UNIT/1 ML 3ML VIAL SQ SCH (07:30)
[2018-09-07] MEDS: FAMOTIDINE 20 MG/2 ML VIAL IV SCH (07:45)
[2018-09-07] MEDS: AMYLAS/CELLU/LIPAS/PROTEA/BILE 12,000 UNIT CAP PO SCH (08:00)
--- NOTE | 2018-09-07 08:40 | Consultation ---
DATE OF CONSULTATION: REASON FOR CONSULT: Palpitations. HISTORY OF PRESENT ILLNESS: Mr. Coleman is a 53-year-old gentleman with a past medical history as listed below. Presented with complaints of palpitation. Patient states that he has been experiencing palpitations off and on for the last couple of weeks. He states that it lasts less than a minute and recurs a few times. He is feeling better now. In the ER, they said he had chest pain, but the patient states that he has had no chest pain. It is only palpitations. Denies any abdominal pain, vomiting or diarrhea. He has a history of atrial fibrillation and takes warfarin. He also has had a history of ICD placed apparently. Initially, it was placed in [place] in 2008, and then changed in 2013. He follows up with Dr. Benitez. Patient also states that he has been having diarrhea when he takes an antidepressant. Patient states his symptoms all started after he was started on a new diabetic medication. Eventually, he stopped the diabetic medication. REVIEW OF SYSTEMS CONSTITUTIONAL: Has some fatigue and weakness. HEENT: No headache, blurring vision, seizure, syncope. CARDIOVASCULAR: No chest pain. Has exertional dyspnea and some palpitations. RESPIRATORY: No cough, fever or expectoration. GI: No abdominal pain. No vomiting. Has diarrhea occasionally. : No dysuria, frequency or incontinence. ALLERGIES: NO KNOWN DRUG ALLERGIES. MEDICATIONS: See list. PAST MEDICAL HISTORY: History of hypertension, history of diabetes mellitus, history of atrial fibrillation, questionable history of ventricular tachycardia. Had an ICD placement in [place] in 2008. Apparently, was changed out in 2013 at [facility]. He follows up with Dr. Benitez. SOCIAL HISTORY: He smokes a pack a day and smoked for 30 years. Drinks alcohol on weekends. FAMILY HISTORY: Noncontributory. PHYSICAL EXAMINATION GENERAL: A slightly obese gentleman alert, oriented and not in any obvious distress. VITALS: Heart rate is 62, blood pressure 98/51, respiratory rate 18, temperature 97.2. HEENT: Atraumatic. NECK: No JVD, bruit, thyromegaly, or lymphadenopathy. CARDIOVASCULAR: First and 2nd heart sounds heard. A 2/6 systolic murmur heard at the left sternal border. CHEST: Decreased air entry at the bases. No adventitious sounds appreciated. ABDOMEN: Soft and nontender. EXTREMITIES: No edema. LABS: Sodium is 136, potassium 3.1, chloride 100, bicarb 25, BUN is 13, creatinine 0.9, glucose 82. Hemoglobin 16.2, hematocrit 50.8, and platelets 276,000, white count is 9.4. Echocardiogram shows ejection fraction of 45% to 50%. EKG shows sinus rhythm at 73 beats per minute. Normal axis. Normal intervals. PVCs, T-wave inversion in 2, 3 and aVF, V5 to V6. IMPRESSION 1. Paroxysmal atrial fibrillation. 2. History of implantable cardioverter defibrillator placement. 3. History of hypertension, currently hypotensive. 4. History of diabetes mellitus. 5. History of depression. PLAN 1. The patient is symptomatically better. His heart rate is under control. 2. Will start him on low-dose digoxin since his blood pressure is on the lower side. 3. He is on amiodarone. Can continue the same. He is on warfarin. His INR is therapeutic. Continue the same. 4. He follows up with Dr. Benitez and can follow up and have his ICD checked. 5. Patient does not want a stress test or heart cath. 6. He has an ejection fraction of 45% to 50%. 7. Continue with carvedilol. I discussed my impression and plan of management with the patient and he understands. As always, I appreciate and thank you very much for the referral. Job#: [id number] KAYLEIGH
[2018-09-07] MEDS ORDERED: BUPROPION HCL 150 MG TABCR PO SCH (09:00)
[2018-09-07] MEDS ORDERED: NON-FORMULARY MEDICATION (Phytonadione (Vitamin K) 100 MCG) PO SCH (09:00)
[2018-09-07] MEDS ORDERED: NON-FORMULARY MEDICATION (Bupropion Hcl (Bupropion Xl) 300 MG) PO SCH (09:00)
[2018-09-07] MEDS ORDERED: ASPIRIN 325 MG TAB PO SCH (09:00)
[2018-09-07] MEDS: CARVEDILOL 12.5 MG TAB PO SCH (09:00)
[2018-09-07] MEDS ORDERED: PANTOPRAZOLE SOD 40 MG TABEC PO SCH (09:00)
[2018-09-07] MEDS ORDERED: ROPINIROLE HCL 1 MG TAB PO SCH (09:00)
[2018-09-07] MEDS ORDERED: PHYTONADIONE 5 MG TAB PO SCH ×2 (09:00)
[2018-09-07] MEDS ORDERED: NON-FORMULARY MEDICATION (Atorvastatin Calcium 40 MG) PO SCH (09:00)
[2018-09-07] MEDS ORDERED: WARFARIN SOD 5 MG TAB PO SCH (09:00)
--- NOTE | 2018-09-07 09:09 | Discharge Summary ---
PRIMARY CARE PHYSICIAN: Tasha CONSULTANTS: Dr. Patrick Bolden FINAL DIAGNOSES 1. Chest pain with negative cardiac enzymes. 2. Baseline atrial fibrillation, rate controlled, on anticoagulant therapy with warfarin therapeutic. INR is 2.36. 3. Stable cardiomyopathy with ejection fraction of 40% to 45% on echocardiogram. 4. Baseline implantable cardioverter defibrillator. SUMMARY: Patient is a 53-year-old male who has an ICD in place. Has EF of 40% to 45%. The patient came in with chest pain. Cardiac enzymes negative. 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 He does have an appointment. The patient, per Dr. Bolden's cardiology consult, preferred to go see his truck driver salesperson for further workup. The patient may have a plan for cardiac catheterization as an outpatient procedure electively. Patient is otherwise stable. Chest pain is off and on. The patient does have an appointment with his truck driver salesperson. He was advised to see his truck driver salesperson this week or early next week at the latest. The patient will go home and discharge home. Resume his home medications. Continue with aspirin and warfarin. Will give the patient nitroglycerin sublingual 0.4 mg every 5 minutes as needed for chest pain. Patient is otherwise stable. Advised to stop smoking. The patient is comfortable. He will go home today and follow up with his family doctor and his truck driver salesperson as planned. Job#: [id number] KAYLEIGH
[2018-09-07] MEDS ORDERED: NITROGLYCERIN0.4 MG SL (09:14)
== END 2018-09-07 09:39 | disposition home or self-care (01) ==
LOC: ER 16:28 → ERHOLD 19:43 → IMCU 09-06 13:38
PROVIDERS: ADMIT Internal Medicine; ATTEND Internal Medicine
DX: R07.2 Precordial pain (principal); I48.0 Paroxysmal atrial fibrillation; I10 Essential (primary) hypertension; E11.9 Type 2 diabetes mellitus without complications; Z95.810 Presence of automatic (implantable) cardiac defibrillator; Z79.01 Long term (current) use of anticoagulants; Z87.891 Personal history of nicotine dependence; Z82.49 Family history of ischemic heart disease and other diseases of the circulatory system; F32.9 Major depressive disorder, single episode, unspecified; I42.9 Cardiomyopathy, unspecified
CPT/HCPCS: 36415 ×3; 71045; 80048; 80053; 80061; 81001; 82550 ×2; 82553 ×2; 82948 ×3; 83690; 83735; 83880; 84484 ×2; 85025 ×2; 85610; 85730; 93005; 93306; 99284; G0378 ×3; J2270